=== PATIENT | male | born 1935 | race Caucasian/White ===

== ENCOUNTER → 2016-12-01 | Outpatient (CLI) | payer MEDICARE, BC | END | disposition home or self-care (01) | LOC: GMAL 14:04 | PROVIDERS: ATTEND Family Medicine | DX: E29.1 Testicular hypofunction (principal) ==

== ENCOUNTER → 2017-03-01 | Outpatient (CLI) | payer MEDICARE ==
--- NOTE | 2017-03-02 11:03 | RAD ---
EXAM DESCRIPTION: Shoulder,Left 2 or More Views CLINICAL HISTORY: 81 years Male, LEFT SHOULDER PAIN COMPARISON: None. FINDINGS: 4 views of the left shoulder show no acute fracture or dislocation. There is slight superior migration of the left humeral head relative to the glenoid with narrowing of the subacromial space suggesting the possibility of chronic left-sided rotator cuff tear. Mild degenerative changes are noted in the left AC joint without significant undersurface spurring. No left-sided rib fracture. IMPRESSION: Degenerative changes in the left glenohumeral and AC joints including possible chronic left-sided rotator cuff tear. Electronically signed by: Eric Cain MD 03/02/2017 11:01 AM CDT Workstation: [email or web address]
== END | disposition home or self-care (01) ==
LOC: RAD 15:15
PROVIDERS: ATTEND Orthopaedic Surgery
DX: M25.512 Pain in left shoulder (principal)

== ENCOUNTER → 2018-09-11 | Outpatient (CLI) | payer MEDICARE | LOC: GMAL 10:21 | PROVIDERS: ATTEND Family Medicine | DX: E55.9 Vitamin D deficiency, unspecified (principal) ==

== ENCOUNTER → 2019-02-15 | Outpatient (CLI) | payer MEDICARE ==
--- NOTE | 2019-02-15 16:42 | CT ---
EXAM DESCRIPTION: Chest w/o Contrast : Computed Tomography. CLINICAL HISTORY: 83 years Male Acute upper respiratory infection. Cough and shortness of breath. COMPARISON: Radiographs of the chest at [facility] on 02/12/2019. TECHNIQUE: Spiral-axial scans at 5 mm intervals through the lungs and thorax without IV contrast. Coronal and sagittal 2.0 Mm reconstructions. Total Exam DLP: 291.59 mGy-cm. This exam was performed according to our departmental dose-optimization program which includes automated exposure control, adjustment of the mA and/or kV according to patient size and/or use of iterative reconstruction technique; to reduce radiation dose to as low as reasonably achievable (ALARA). Nodule measurements under 10 mm are given as mean value of 3 axes diameters. FINDINGS: Lungs and large airways: Irregular 6 mm nodule associated with additional densities and pleura in the anterior lateral left upper lobe on axial series 2, image 24. Minimal bilateral dilated airspaces more prevalent in the upper lung henry. Bilateral radiodense calcified and noncalcified nodules ranging from 2 to 3 mm in diameter. Mostly in the upper lobes, middle lobe, and lingula. Calcifications in the right lower lobe abutting the pleura. Pleural parenchymal scarring left lung base. Minimal bilateral perihilar peribronchial wall cuffing. Pleural spaces: Bilateral apical pleural thickening more right than left. No pleural effusion or pneumothorax. Pleural calcifications posterior right base.. Mediastinum and Renee: Evaluation limited due to lack of IV contrast. No dominant soft tissue masses or enlarged lymph nodes. Small calcifications. Great vessels and Heart: Evaluation limited due to lack of IV contrast.. Vascular calcifications of the coronary arteries, some of the included brachiocephalic vessels, and the aortic arch and thoracic aorta. Soft tissues of neck base, axillae, and chest wall: Evaluation limited due to lack of IV contrast.. Retroareolar left breast density. No enlarged axillary lymph nodes. Upper abdomen: Included peritoneal space is unremarkable. Surgical clips abutting the gastroesophageal junction. Included abdominal organs are unremarkable. Osseous structures: Spondylosis at multiple levels of the thoracic spine. Bilateral sternoclavicular arthrosis. Minimal glenohumeral arthrosis bilaterally. No lytic or blastic lesions. IMPRESSION: 1. 6 mm solid nodule with irregular adjacent densities versus old parenchymal pleural scarring anterior lateral left upper lobe. Emphysematous changes in the lungs more prevalent in the upper lobes bilaterally. Multiple bilateral small nodules 2 to 3 mm in diameter predominantly in the upper lobes and midlungs. Some of the nodules are calcified. Calcification in the mediastinum, and also in the right lung base and pleura. This may be related to prior granulomatous disease. Please see [facility] Best Practice recommendations utilizing Fleischner Society 2017 guidelines. Multiple pulmonary nodules. Most severe: 6.0 mm solid suspicious pulmonary nodule within the upper lobe. Recommend a non-contrast Chest CT at 3-6 months, then consider another non-contrast Chest CT at 18-24 months. These guidelines do not apply to patients younger than 35 years, immunocompromised patients, and patients with cancer. Follow up in patients with significant comorbidities as clinically warranted. For lung cancer screening, adhere to Lung-RADS guidelines. Reference: Radiology. 2017; 284(1):228-43. 2. Soft tissue density in the retroareolar left breast most likely gynecomastia. Compare to clinical findings. Electronically signed by: Beni Curtis MD 02/15/2019 4:40 PM CDT
== END ==
LOC: CT 15:00
PROVIDERS: ATTEND Family Medicine
DX: J06.9 Acute upper respiratory infection, unspecified (principal); J44.9 Chronic obstructive pulmonary disease, unspecified; R91.8 Other nonspecific abnormal finding of lung field; N63.20 Unspecified lump in the left breast, unspecified quadrant

== ENCOUNTER → 2019-07-15 | Outpatient (CLI) | payer MEDICARE | LOC: GMAL 10:43 | PROVIDERS: ATTEND Family Medicine | DX: R53.83 Other fatigue (principal); E78.49 Other hyperlipidemia; Z79.899 Other long term (current) drug therapy ==

== ENCOUNTER → 2019-08-26 | Outpatient (CLI) | payer MEDICARE | LOC: GMAL 10:34 | PROVIDERS: ATTEND Family Medicine | DX: E29.1 Testicular hypofunction (principal); D51.3 Other dietary vitamin B12 deficiency anemia; Z79.899 Other long term (current) drug therapy ==

== ENCOUNTER → 2020-03-02 | Outpatient (CLI) | payer MEDICARE | LOC: GMAL 14:18 | PROVIDERS: ATTEND Family Medicine | DX: E29.1 Testicular hypofunction (principal); Z12.5 Encounter for screening for malignant neoplasm of prostate | CPT/HCPCS: 84402; 84403; G0103 ==

== ENCOUNTER → 2020-05-01 | Outpatient (CLI) | payer MEDICARE | LOC: GMAF 12:46 | PROVIDERS: ATTEND Nurse Practitioner Family | DX: R39.15 Urgency of urination (principal) ==

== ENCOUNTER → 2020-06-30 | Outpatient (CLI) | payer MEDICARE | LOC: GMAL 14:24 | PROVIDERS: ATTEND Family Medicine | DX: D51.3 Other dietary vitamin B12 deficiency anemia (principal); E55.9 Vitamin D deficiency, unspecified; Z79.899 Other long term (current) drug therapy ==